=== PATIENT | female | born 1950 | race Hispanic/Latino ===

== ENCOUNTER 2017-10-02 11:04 | Outpatient (CLI) | payer MEDICARE | END 2017-10-02 14:24 | disposition home or self-care (01) | LOC: BICRAD 11:04 | PROVIDERS: ATTEND Internal Medicine | DX: M54.9 Dorsalgia, unspecified (principal); M47.896 Other spondylosis, lumbar region | CPT/HCPCS: 72072; 72110; 72170 ==

== ENCOUNTER 2018-01-07 13:21 | Outpatient (CLI) | payer MEDICARE, OTHER | END 2018-01-07 13:22 | disposition home or self-care (01) | LOC: BICMAMMO 13:21 | PROVIDERS: ATTEND Obstetrics & Gynecology | DX: Z12.31 Encounter for screening mammogram for malignant neoplasm of breast (principal); Z80.3 Family history of malignant neoplasm of breast | CPT/HCPCS: 77063; 77067 ==

== ENCOUNTER 2018-03-09 11:58 | Outpatient (CLI) | payer MEDICARE, OTHER | END 2018-03-09 11:59 | disposition home or self-care (01) | LOC: BICRAD 11:58 | PROVIDERS: ATTEND Internal Medicine | DX: M54.6 Pain in thoracic spine (principal) | CPT/HCPCS: 72072 ==

== ENCOUNTER 2018-03-26 10:21 | Outpatient (CLI) | payer MEDICARE, OTHER | END 2018-03-26 10:22 | disposition home or self-care (01) | LOC: BICRAD 10:21 | PROVIDERS: ATTEND Internal Medicine | DX: M43.16 Spondylolisthesis, lumbar region (principal); R10.84 Generalized abdominal pain; M54.5 Low back pain | CPT/HCPCS: 72100; 74019 ==

== ENCOUNTER 2018-04-02 08:57 | Outpatient (CLI) | payer MEDICARE, OTHER | END 2018-04-02 08:58 | disposition home or self-care (01) | LOC: BICMAMMO 08:57 | PROVIDERS: ATTEND Internal Medicine | DX: M85.80 Other specified disorders of bone density and structure, unspecified site (principal) | CPT/HCPCS: 77080 ==

== ENCOUNTER 2018-06-25 15:07 | Outpatient (CLI) | payer MEDICARE, OTHER | END 2018-06-25 15:08 | disposition home or self-care (01) | LOC: BICRAD 15:07 | PROVIDERS: ATTEND Internal Medicine | DX: R05 Cough (principal) | CPT/HCPCS: 71046 ==

== ENCOUNTER 2018-08-18 08:17 | Outpatient (CLI) | payer MEDICARE, OTHER ==
--- NOTE | 2018-08-18 10:28 | ULT ---
ABDOMINAL ULTRASOUND: Date: 08/18/18 HISTORY: Left upper quadrant pain. FINDINGS: Gallbladder has a normal sonographic appearance. No evidence of gallstones. Common duct is normal lanre iber. Aorta and IVC are unremarkable as visualized. The liver shows mild increased echogenicity sugge sting fatty infiltration. Liver and spleen otherwise unremarkable. Pancreas is partially imaged and a ppears unremarkable as visualized. Both kidneys are imaged and appear unremarkable. IMPRESSION: 1. Evidence of mild hepatic steatosis. 2. Unremarkable gallbladder. POS: [facility]
== END 2018-08-18 08:18 | disposition home or self-care (01) ==
LOC: BICULT 08:17
PROVIDERS: ATTEND Internal Medicine
DX: R10.84 Generalized abdominal pain (principal); K76.0 Fatty (change of) liver, not elsewhere classified
CPT/HCPCS: 76700

== ENCOUNTER 2018-12-14 13:17 | Outpatient (CLI) | payer MEDICARE ==
--- NOTE | 2018-12-14 15:38 | RAD ---
PA AND LATERAL VIEWS CHEST: 12/14/18 HISTORY: Dyspnea. FINDINGS: Comparison made to exam of 06/25/18. The heart size is normal. The aorta is tortuous. The lungs are well expanded without focal areas of c onsolidation, pneumothoraces or pleural effusions. There are mild degenerative changes in the spine. IMPRESSION: No radiographic evidence of acute cardiopulmonary process. POS: [facility]
== END 2018-12-14 13:18 | disposition home or self-care (01) ==
LOC: RAD 13:17
PROVIDERS: ATTEND Internal Medicine Critical Care Medicine
DX: R06.00 Dyspnea, unspecified (principal)
CPT/HCPCS: 71046

== ENCOUNTER 2019-01-08 14:31 | Outpatient (CLI) | payer MEDICARE ==
--- NOTE | 2019-01-18 13:19 | MMO ---
Bilateral MAMMO Bilat Screen [facility]. CLINICAL HISTORY: Patient is 69 years old and is seen for screening. The patient has the following family history of breast cancer: mother, at age 40. The patient has no personal history of cancer. VIEWS: The views performed were: bilateral craniocaudal with tomosynthesis and bilateral mediolateral oblique with tomosynthesis. FILMS COMPARED: The present examination has been compared to prior imaging studies performed at [facility] on 11/26/2007, 11/28/2008, 11/29/2009, 12/30/2011, 12/30/2012, 01/06/2014, 01/10/2015, 01/17/2016, 01/21/2017 and 01/07/2018, and at [facility] on 10/22/2000 and 11/30/2001. MAMMOGRAM FINDINGS: There are scattered fibroglandular densities. Benign calcifications are noted bilaterally. There are no suspicious masses, calcifications or areas of architectural distortion. IMPRESSION: FINDINGS IN BOTH BREASTS ARE BENIGN. A ROUTINE FOLLOW-UP MAMMOGRAM IN 1 YEAR IS RECOMMENDED. THE RESULTS OF THIS EXAM WERE SENT TO THE PATIENT. ACR BI-RADS Category 2 - Benign finding MAMMOGRAPHY NOTE: 1. A negative mammogram report should not delay a biopsy if a dominant of clinically suspicious mass is present. 2. Approximately 10% to 15% of breast cancers are not detected by mammography. 3. Adenosis and dense breasts may obscure an underlying neoplasm.
== END 2019-01-08 14:32 | disposition home or self-care (01) ==
LOC: BICMAMMO 14:31
PROVIDERS: ATTEND Obstetrics & Gynecology
DX: Z12.31 Encounter for screening mammogram for malignant neoplasm of breast (principal); Z80.3 Family history of malignant neoplasm of breast
CPT/HCPCS: 77063; 77067

== ENCOUNTER 2019-04-13 09:47 | Outpatient (CLI) | payer MEDICARE ==
--- NOTE | 2019-04-13 12:58 | BD ---
Exam: DEXA Bone Density 04/13/19 HISTORY: Unspecified menopausal and perimenopausal disorder. COMPARISON: DEXA study from 2018. FINDINGS: Lumbar Spine: BMD (g/cm2) T-SCORE Z-SCORE L1 0.816 -1.6 0.2 L2 0.918 -1.0 1.0 L3 0.903 -1.6 0.5 L4 1.013 -0.4 1.8 L1-L4 0.915 -1.2 0.9 WHO classification is osteopenia. Left Femoral Neck: 0.669 -1.6 0.0 Total Left Femur: 0.963 0.2 1.4 WHO classification is osteopenia. Ten year fracture risk: Major osteoporotic fracture: 5.7%. Hip fracture: 0.8%. Impression: Osteopenia with elevated fracture risk. Slight interval improvement in bone mineral density from the comparison exam. POS: [facility]
== END 2019-04-13 09:48 | disposition home or self-care (01) ==
LOC: BICMAMMO 09:47
PROVIDERS: ATTEND Obstetrics & Gynecology
DX: N95.9 Unspecified menopausal and perimenopausal disorder (principal); M85.852 Other specified disorders of bone density and structure, left thigh; M85.88 Other specified disorders of bone density and structure, other site
CPT/HCPCS: 77080

== ENCOUNTER 2020-01-12 09:01 | Outpatient (CLI) | payer MEDICARE ==
--- NOTE | 2020-01-12 13:27 | MMO ---
Bilateral MAMMO Bilat Screen [facility]. CLINICAL HISTORY: Patient is 70 years old and is seen for screening. The patient has the following family history of breast cancer: mother, at age 40. The patient has no personal history of cancer. VIEWS: The views performed were: bilateral craniocaudal with tomosynthesis and bilateral mediolateral oblique with tomosynthesis. FILMS COMPARED: The present examination has been compared to prior imaging studies performed at [facility] on 01/21/2017, 01/07/2018 and 01/08/2019. This study has been interpreted with the assistance of computer-aided detection. MAMMOGRAM FINDINGS: There are scattered fibroglandular densities. Benign calcifications are noted bilaterally. There are no suspicious masses, suspicious calcifications, or new areas of architectural distortion. IMPRESSION: THERE IS NO MAMMOGRAPHIC EVIDENCE OF MALIGNANCY. A ROUTINE FOLLOW-UP MAMMOGRAM IN 1 YEAR IS RECOMMENDED. THE RESULTS OF THIS EXAM WERE SENT TO THE PATIENT. ACR BI-RADS Category 2 - Benign finding MAMMOGRAPHY NOTE: 1. A negative mammogram report should not delay a biopsy if a dominant of clinically suspicious mass is present. 2. Approximately 10% to 15% of breast cancers are not detected by mammography. 3. Adenosis and dense breasts may obscure an underlying neoplasm. Reported by: NENA MOONEY MD Electonically Signed: [id number]
== END 2020-01-12 09:02 | disposition home or self-care (01) ==
LOC: BICMAMMO 09:01
PROVIDERS: ATTEND Obstetrics & Gynecology
DX: Z12.31 Encounter for screening mammogram for malignant neoplasm of breast (principal); Z80.3 Family history of malignant neoplasm of breast
CPT/HCPCS: 77063; 77067

== ENCOUNTER 2021-01-15 09:21 | Outpatient (CLI) | payer MEDICARE | END 2021-01-15 09:22 | disposition home or self-care (01) | LOC: BICMAMMO 09:21 | PROVIDERS: ATTEND Obstetrics & Gynecology | DX: Z12.31 Encounter for screening mammogram for malignant neoplasm of breast (principal); Z80.3 Family history of malignant neoplasm of breast | CPT/HCPCS: 77063; 77067 ==

== ENCOUNTER 2023-03-13 11:17 | Outpatient (CLI) | payer MEDICARE | END 2023-03-13 11:18 | disposition home or self-care (01) | LOC: BICMAMMO 11:17 | PROVIDERS: ATTEND Obstetrics & Gynecology | DX: Z12.31 Encounter for screening mammogram for malignant neoplasm of breast (principal) | CPT/HCPCS: 77063; 77067 ==

== ENCOUNTER 2023-12-08 13:11 | Outpatient (CLI) | payer MEDICARE | END 2023-12-08 13:12 | disposition home or self-care (01) | LOC: RAD 13:11 | PROVIDERS: ATTEND Internal Medicine Critical Care Medicine | DX: R06.00 Dyspnea, unspecified (principal) | CPT/HCPCS: 71046 ==

== ENCOUNTER 2025-05-21 02:38 | Emergency (ER) | payer MEDICARE ==
[2025-05-21 03:14] LABS: #Basophils 0.06 10x3/uL (0.0-0.2); #Eosinophils 0.12 10x3/uL (0.0-0.7); #Monocytes 0.75 10x3/uL (0.11-0.59); #Neutrophils 4.92 10x3/uL (1.40-6.50); %Basophils 0.6 % (0.0-1.0); %Eosinophils 1.3 % (0.0-10.0); %Lymphocytes 36.6 % (21.0-51.0); %Monocytes 8.1 % (0.0-10.0); %Neutrophils 53.2 % (42.0-75.0); Hematocrit 40.2 % (36.0-47.0); Hemoglobin 13.7 g/dL (12.0-16.0); Mean Corpuscular Hemoglobin 28.7 pg (27.0-31.0); Mean Corpuscular Volume 84.1 fL (78.0-98.0); Platelet Count 235 10x3/uL (130-400); Red Blood Cell (RBC) Count 4.78 mill/uL (4.20-5.40); White Blood Cell (WBC) Count 9.26 10x3/uL (4.8-10.8)
[2025-05-21 03:26] LABS: Bacteria/HPF None Seen HPF (None Seen); CAUTI Indications for Culture Dysuria,urgency,freq; Glucose, Urine (Dipstick) Normal (Negative); Leukocyte 25 Leu/uL (Negative); Protein, Urine (Dipstick) Negative (Neg-Trace); RBC/HPF 0-3 HPF (0-3); Specific Gravity, Urine 1.007 (1.002-1.036); WBC/HPF 0-3 HPF (0-3)
[2025-05-21 03:28] LABS: Urine Culture Reflex No No
[2025-05-21 03:40] LABS: ALT (SGPT) 34 U/L (Less than 34); AST (SGOT) 42 U/L (11-34); Albumin 4.8 g/dL (3.1-4.5); Alkaline Phosphatase 104 U/L (40-110); Anion Gap 15 mmol/L (10-20); BUN (Urea Nitrogen) 9 mg/dL (9.8-20.1); Bilirubin, Total 0.5 mg/dL (0.3-1.2); Calc. Creatinine Clearance 0 mL/min (70-130); Calcium 9.6 mg/dL (7.8-10.44); Carbon Dioxide 22 mmol/L (23-31); Chloride 96 mmol/L (98-107); Globulin 3.3 g/dL (2.4-3.5); Glucose 107 mg/dL (83-110); Potassium 3.9 mmol/L (3.5-5.1); Sodium 129 mmol/L (136-145)
== END 2025-05-21 05:04 | disposition home or self-care (01) ==
LOC: ERS 02:38
DX: N39.0 Urinary tract infection, site not specified (principal); I10 Essential (primary) hypertension; E78.5 Hyperlipidemia, unspecified; Z79.899 Other long term (current) drug therapy
CPT/HCPCS: 36415; 80053; 81001; 85025; 87086; 99284